=== PATIENT | female | born 1980 | race Caucasian/White ===

== ENCOUNTER 2018-05-20 17:03 | Observation (INO) ==
[2018-05-20] MEDS ORDERED: 0.9 % Sodium Chloride 1,000 ML IVC ONE ×2 (18:03→18:07)
[2018-05-20] MEDS ORDERED: Ondansetron 4 MG/2 ML VIAL IVP ONE (18:03)
[2018-05-20 19:04] LABS: Bilirubin,Urine Negative (Negative); Blood,Urine Negative (Negative); Clarity,Urine Cloudy (Clear); Color,Urine Yellow (Yellow); Glucose,Urine (UA) Normal (Normal); Ketones,Urine Negative (Negative); Leukocyte Esterase,Urine Negative (Negative); Nitrite,Urine Negative (Negative); Protein,Urine Negative (Neg-Trace); Specific Gravity,Urine 1.022 (1.010-1.025); Urobilinogen,Urine Normal (Normal)
[2018-05-20 19:05] LABS: Bacteria,Urine Few per hpf (None-Few); Hyaline Casts,Urine None Seen per lpf (None-Few); RBC,Urine 0-3 per hpf (0-3); Squamous Epithelial Cell,Urine Many per lpf (None-Few); WBC,Urine 0-3 per hpf (0-3)
--- NOTE | 2018-05-20 19:12 | Emergency Department Note ---
Disposition Clinical Impression: Acute cholecystitis Disposition: Admitted As Inpatient Condition: Good Nausea/Vomiting/Diarrhea HPI - General Chief complaint: ED Nausea/Vomiting/Diarrhea Stated complaint: CP Time Seen by Provider: 05/20/18 17:06 Source: patient Mode of arrival: private vehicle Limitations: no limitations Nursing Notes Reviewed: Yes Vital Signs Reviewed: Yes - History of Present Illness HPI Narrative: 37-year-old female presents to the ER with a complaint of nausea vomiting diarrhea and abdominal pain for 3 days. Symptoms began with right-sided abdominal pain with nonbloody nonbilious vomiting as well as nonbloody diarrhea. Denies any past surgical history with the exception of a tubal ligation. Reports she was unable to keep anything down today. She started having a cough for a few days and some chest pain is worse whenever she coughs. No history of cardiovascular disease. Reports as unable to urinate today. No other complaints. Pt Subjective Complaint: nausea, vomiting, diarrhea, abdominal pain Onset (ago): day(s) Description of emesis: watery Description of Diarrhea: water If pain, Location of pain: other (Right-sided) Consistency: intermittent Improves with: nothing Worsens with: nonthing Associated symptoms: Reports: chest pain, cough, nausea/vomiting. Denies: fever /chills, dysuria - Related Data Allergies Allergy/AdvReac Type Severity Reaction Status Date / Time Sulfa (Sulfonamide Allergy Hives Verified 05/20/18 17:19 Antibiotics) All systems ED: reviewed and negative except as stated. Constitutional: Denies: fever, chills Cardiovascular: Reports: chest pain Respiratory: Reports: cough. Denies: dyspnea Gastrointestinal: Reports: abdominal pain, nausea, vomiting, diarrhea Genitourinary: Denies: dysuria, hematuria Past Medical History - Past Medical History Attestation: Yes The following information was validated with the patient. Source: patient Medical history: Reports: non-contributory Physical Exam - General Limitations: no limitations General appearance: alert, in no apparent distress - Head Head exam: atraumatic, normocephalic - Eye Eye exam: Present: normal appearance - ENT ENT exam: normal exam - Neck Neck exam: Present: normal inspection, tenderness (Along the sternum) - Chest Chest inspection: Present: normal inspection, symmetric chest wall rise - Respiratory Respiratory exam: Present: normal lung sounds bilaterally - Cardiovascular Cardiovascular exam: Present: normal rhythm, tachycardia, normal heart sounds - Abdominal Exam Abdominal exam: Present: soft, tenderness (Moderate right sided abdominal pain just off the umbilicus.). Absent: distention, guarding, rigidity - Extremities Exam Extremities exam: Present: normal inspection, full ROM - Expanded Upper Extremity Exam Shoulder exam: Present: normal inspection, full ROM Arm exam: Present: normal inspection, full ROM Elbow exam: Present: normal inspection, full ROM Forearm/Wrist exam: Present: normal inspection, full ROM Hand exam: Present: normal inspection, full ROM - Expanded Lower Extremity Exam Hip/Pelvis exam: Present: normal inspection, full ROM Upper leg exam: Present: normal inspection, full ROM Knee exam: Present: normal inspection, full ROM Lower leg exam: Present: normal inspection, full ROM Ankle exam: Present: normal inspection, full ROM Foot/toe exam: Present: normal inspection, full ROM - Skin Skin exam: Present: warm, dry Course Course Narrative: Patient seen and examined. Vital signs reviewed. Plan for CT imaging, labs, urinalysis. EKG for chest pain which is reproducible here. - Reevaluation(s) Reevaluation #1: Discussed results of imaging and labs with the patient. Discussed that she would be admitted. - Consultations Consultation #1: I discussed his case with the on-call surgeon. CT imaging concerning for acute cholecystitis. She has a leukocytosis with a left shift. Asked if he would like an ultrasound. States she can be admitted to his service. Vital Signs Temperature 97.7 F 05/20/18 17:05 Pulse Rate 106 05/20/18 17:05 Respiratory Rate 18 05/20/18 17:05 Blood Pressure 120/87 05/20/18 17:05 O2 Sat by Pulse Oximetry 98 05/20/18 17:05 Temperature 97.7 F 05/20/18 17:05 Pulse Rate 71 05/20/18 19:40 Respiratory Rate 16 05/20/18 21:07 Blood Pressure 108/76 05/20/18 21:07 O2 Sat by Pulse Oximetry 94 05/20/18 19:40 Oxygen Delivery Oxygen Delivery Room Air Nausea/Vomiting/Diarrhea - MDM Narrative Medical decision making narrative: 37-year-old female no medical history presents with 3 days of right-sided abdominal pain with nausea and vomiting. Nonsurgical abdominal exam. CT imaging demonstrates gallbladder wall thickening and cholelithiasis with concerns for acute cholecystitis. She has a leukocytosis with shift. She has a common bile duct dilation. LFTs and bilirubin are normal. Case discussed with the on-call surgeon. Patient given fentanyl for pain, IV fluids, Zofran as well as Zosyn. Admitted in stable condition. - Lab Data Lab results reviewed: Yes I reviewed the patient's lab results. Result diagrams: 05/20/18 19:06 05/20/18 19:06 Lab Results 05/20/18 05/20/18 05/20/18 Range/Units 18:48 18:48 19:06 WBC 14.6 H (4.3-11.1) K/mcL RBC 3.93 (3.82-4.97) M/mcL Hgb 12.8 (11.5-15.4) g/dL Hct 37.9 (35.3-44.9) % MCV 96.4 (83.0-100.0) fL MCH 32.6 (28.0-33.3) pg MCHC 33.8 (31.6-35.5) g/dL RDW 12.7 (11.5-14.5) % Plt Count 325 (140-400) K/mcL MPV 9.7 (9.4-12.4) fL Immature Gran % 0.3 (0-4) % Seg Neutrophils % 75.0 % Lymphocytes % 17.9 % Monocytes % 5.1 % Eosinophils % 1.2 % Basophils % 0.5 % Neutrophils # 10.9 H (1.6-8.9) K/mcL Lymphocytes # 2.6 (0.6-4.6) K/mcL Monocytes # 0.8 (0.0-1.3) K/mcL Eosinophils # 0.2 (0.0-0.6) K/mcL Basophils # 0.1 (0.0-0.2) K/mcL Sodium (136-145) mEq/L Potassium (3.5-5.1) mEq/L Chloride (98-107) mEq/L Carbon Dioxide (23-29) mEq/L BUN (6-20) mg/dL Creatinine (0.60-1.20) mg/dL Est GFR ( Amer) (> 60) Est GFR (Non-Af Amer) (> 60) BUN/Creatinine Ratio (6-26) Glucose (70-105) mg/dL Calculated Osmolality (280-300) Calcium (8.6-10.3) mg/dL Total Bilirubin (0.3-1.0) mg/dL AST (13-39) Units/L ALT (7-52) Units/L Alkaline Phosphatase (34-104) Units/L Serum Total Protein (6.4-8.9) g/dL Albumin (3.5-5.7) g/dL Globulin (2.4-3.5) g/dL Albumin/Globulin Ratio (1.1-2.2) Lipase (11-82) Units/L Serum , Qual (Negative) Urine Color Yellow (Yellow) Urine Clarity Cloudy A (Clear) Urine pH 7.0 (5.0-8.0) pH Units Ur Specific [place] 1.022 (1.010-1.025) Urine Protein Negative (Neg-Trace) mg/dL Urine Glucose (UA) Normal (Normal) mg/dL Urine Ketones Negative (Negative) mg/dL Urine Blood Negative (Negative) Urine Nitrite Negative (Negative) Urine Bilirubin Negative (Negative) Urine Urobilinogen Normal (Normal) mg/dL Ur Leukocyte Esterase Negative (Negative) Urine Microscopic RBC 0-3 (0-3) per hpf Urine Microscopic WBC 0-3 (0-3) per hpf Ur Squamous Epith Cells Many H (None-Few) per lpf Urine Bacteria Few (None-Few) per hpf Hyaline Casts None Seen (None-Few) per lpf Ur Culture Indicated? NO (NO) Urine Test Negative (Negative) 05/20/18 05/20/18 Range/Units 19:06 19:06 WBC (4.3-11.1) K/mcL RBC (3.82-4.97) M/mcL Hgb (11.5-15.4) g/dL Hct (35.3-44.9) % MCV (83.0-100.0) fL MCH (28.0-33.3) pg MCHC (31.6-35.5) g/dL RDW (11.5-14.5) % Plt Count (140-400) K/mcL MPV (9.4-12.4) fL Immature Gran % (0-4) % Seg Neutrophils % % Lymphocytes % % Monocytes % % Eosinophils % % Basophils % % Neutrophils # (1.6-8.9) K/mcL Lymphocytes # (0.6-4.6) K/mcL Monocytes # (0.0-1.3) K/mcL Eosinophils # (0.0-0.6) K/mcL Basophils # (0.0-0.2) K/mcL Sodium 140 (136-145) mEq/L Potassium 3.7 (3.5-5.1) mEq/L Chloride 110 H (98-107) mEq/L Carbon Dioxide 21 L (23-29) mEq/L BUN 13 (6-20) mg/dL Creatinine 0.69 (0.60-1.20) mg/dL Est GFR ( Amer) > 60 (> 60) Est GFR (Non-Af Amer) > 60 (> 60) BUN/Creatinine Ratio 19 (6-26) Glucose 147 H (70-105) mg/dL Calculated Osmolality 293 (280-300) Calcium 8.7 (8.6-10.3) mg/dL Total Bilirubin 0.5 (0.3-1.0) mg/dL AST 13 (13-39) Units/L ALT 18 (7-52) Units/L Alkaline Phosphatase 79 (34-104) Units/L Serum Total Protein 6.5 (6.4-8.9) g/dL Albumin 3.7 (3.5-5.7) g/dL Globulin 2.8 (2.4-3.5) g/dL Albumin/Globulin Ratio 1.3 (1.1-2.2) Lipase 16 (11-82) Units/L Serum , Qual Negative (Negative) Urine Color (Yellow) Urine Clarity (Clear) Urine pH (5.0-8.0) pH Units Ur Specific [place] (1.010-1.025) Urine Protein (Neg-Trace) mg/dL Urine Glucose (UA) (Normal) mg/dL Urine Ketones (Negative) mg/dL Urine Blood (Negative) Urine Nitrite (Negative) Urine Bilirubin (Negative) Urine Urobilinogen (Normal) mg/dL Ur Leukocyte Esterase (Negative) Urine Microscopic RBC (0-3) per hpf Urine Microscopic WBC (0-3) per hpf Ur Squamous Epith Cells (None-Few) per lpf Urine Bacteria (None-Few) per hpf Hyaline Casts (None-Few) per lpf Ur Culture Indicated? (NO) Urine Test (Negative) - Radiology Data Radiology results reviewed: Yes I reviewed the patient's radiology results. Chest X-Ray 05/20/18 17:10 IMPRESSION: Negative chest. D/ / Erin Person MD / Erin Person MD Interpreting Provider: Erin Person MD Abdomen/Pelvis CT 05/20/18 18:06 IMPRESSION: 1. Irregular gallbladder wall thickening with probable non calcified stones. Mild dilatation of the common bile duct at 11 mm. The findings are concerning for cholecystitis. Ultrasound follow-up recommended. 2. No other acute findings within the abdomen or pelvis. No evidence of obstructive uropathy or appendicitis. D/ / Jeevan Haley MD / Jeevan Haley MD Interpreting Provider: Jeevan Haley MD Lizzy - Lizzy Situation: Demographics, MOA Background: Presenting Complaint, Relevant PMH, Meds, & Allergies Assessment: Course and respsone to treatment, Exam Concerns, Patient/Family Expectation, Pertinant Lab Results Recommendation: Barrier(s) to disposition, Recommendation based on pending studies, treatments, or consults Lizzy Report Given to: Dr. Isidro Ball [facility] Time: 21:20 Attestation Statement - Attestation Attestation: I examined this patient and my medical decision-making was reviewed with the Resident Physician, Dr. Cueto. I agree with the documented findings, disposition and treatment plan as described except to the extent set forth below. Patient is a 37-year-old white female with a 3 day history of nausea vomiting diarrhea and nonbloody with right-sided abdominal pain. Patient states she is having difficulty tolerating by mouth and gradually worsening severity of pain is generalized to the right side. Patient denies any fevers or chills, no history of falls or trauma, no prior surgical intervention. I agree with patient's physical exam findings as documented, vital signs are stable. Patient was made nothing by mouth received IV pain and nausea medications had full laboratory evaluation including urinalysis and bedside ultrasound of the gallbladder by Dr. Cueto and CT imaging of the abdomen and pelvis. Patient with leukocytosis and CT shows acute cholecystitis. Case was discussed with Dr. Yanes who accepted the patient to his service for IV antibiotics were initiated patient's remained hemodynamically stable and is resting complaint this time.
[2018-05-20 19:37] LABS: Basophils # 0.1 K/mcL (0.0-0.2); Basophils % 0.5 %; Eosinophils # 0.2 K/mcL (0.0-0.6); Eosinophils % 1.2 %; Hematocrit 37.9 % (35.3-44.9); Hemoglobin 12.8 g/dL (11.5-15.4); Immature Granulocytes % 0.3 % (0-4); Lymphocytes # 2.6 K/mcL (0.6-4.6); Lymphocytes % 17.9 %; Mean Corpuscular HGB Conc 33.8 g/dL (31.6-35.5); Mean Corpuscular Hemoglobin 32.6 pg (28.0-33.3); Mean Corpuscular Volume 96.4 fL (83.0-100.0); Mean Platelet Volume 9.7 fL (9.4-12.4); Monocytes # 0.8 K/mcL (0.0-1.3); Monocytes % 5.1 %; Neutrophils # 10.9 K/mcL (1.6-8.9); Platelet Count 325 K/mcL (140-400); Red Blood Count 3.93 M/mcL (3.82-4.97); Red Cell Distribution Width 12.7 % (11.5-14.5)
[2018-05-20 19:41] LABS: Alanine Aminotransferase 18 Units/L (7-52); Albumin 3.7 g/dL (3.5-5.7); Albumin/Globulin Ratio 1.3 (1.1-2.2); Alkaline Phosphatase 79 Units/L (34-104); Aspartate Amino Transferase 13 Units/L (13-39); BUN/Creatinine Ratio 19 (6-26); Bilirubin,Total 0.5 mg/dL (0.3-1.0); Blood Urea Nitrogen 13 mg/dL (6-20); Calcium 8.7 mg/dL (8.6-10.3); Carbon Dioxide 21 mEq/L (23-29); Chloride 110 mEq/L (98-107); Globulin 2.8 g/dL (2.4-3.5); Glucose 147 mg/dL (70-105); Lipase 16 Units/L (11-82); Osmolality,Calculated 293 (280-300); Potassium 3.7 mEq/L (3.5-5.1); Sodium 140 mEq/L (136-145); Total Protein 6.5 g/dL (6.4-8.9); eGFR For Non-African Americans > 60 (> 60)
[2018-05-20] MEDS ORDERED: Piperacillin/Tazobactam 3.375 GM in 0.9 % Sodium Chloride Mini Bag 100 ML IVPB ONE (20:43)
[2018-05-20] MEDS ORDERED: *HR* FentaNYL (PF) 100 MCG/2 ML VIAL IVP ONE (20:50)
[2018-05-20] MEDS: 0.9 % Sodium Chloride 1,000 ML IVC SCH (22:54)
[2018-05-20] MEDS: *HR* OxyCODONE/APAP 10/325 TABLET PO PRN (22:54)
[2018-05-20] MEDS ORDERED: Ondansetron 4 MG/2 ML VIAL IVP PRN (23:47)
[2018-05-21] MEDS ORDERED: Ondansetron 4 MG/2 ML VIAL IVP SCH
[2018-05-21] MEDS: cefOXitin 2,000 MG in Water for inj. (sterile) 20 ML 20 ML IVP SCH ×2 (01:01→08:20)
[2018-05-21 01:46] LABS: Basophils # 0.1 K/mcL (0.0-0.2); Basophils % 0.7 %; Eosinophils # 0.2 K/mcL (0.0-0.6); Eosinophils % 1.6 %; Hematocrit 36.5 % (35.3-44.9); Hemoglobin 12.2 g/dL (11.5-15.4); Immature Granulocytes % 0.4 % (0-4); Lymphocytes # 2.7 K/mcL (0.6-4.6); Lymphocytes % 19.6 %; Mean Corpuscular HGB Conc 33.4 g/dL (31.6-35.5); Mean Corpuscular Hemoglobin 32.8 pg (28.0-33.3); Mean Corpuscular Volume 98.1 fL (83.0-100.0); Mean Platelet Volume 10.2 fL (9.4-12.4); Monocytes # 0.9 K/mcL (0.0-1.3); Monocytes % 6.5 %; Neutrophils # 9.8 K/mcL (1.6-8.9); Platelet Count 327 K/mcL (140-400); Red Blood Count 3.72 M/mcL (3.82-4.97); Red Cell Distribution Width 12.5 % (11.5-14.5); Segmented Neutrophils % 71.2 %
[2018-05-21 02:05] LABS: Alanine Aminotransferase 19 Units/L (7-52); Albumin 3.6 g/dL (3.5-5.7); Albumin/Globulin Ratio 1.6 (1.1-2.2); Alkaline Phosphatase 76 Units/L (34-104); Aspartate Amino Transferase 16 Units/L (13-39); BUN/Creatinine Ratio 16 (6-26); Bilirubin,Direct 0.1 mg/dL (0.0-0.2); Bilirubin,Indirect 0.5 mg/dL (0.0-1.2); Bilirubin,Total 0.6 mg/dL (0.3-1.0); Blood Urea Nitrogen 11 mg/dL (6-20); Calcium 8.7 mg/dL (8.6-10.3); Carbon Dioxide 19 mEq/L (23-29); Chloride 112 mEq/L (98-107); Globulin 2.3 g/dL (2.4-3.5); Glucose 157 mg/dL (70-105); Osmolality,Calculated 293 (280-300); Potassium 3.7 mEq/L (3.5-5.1); Sodium 140 mEq/L (136-145); Total Protein 5.9 g/dL (6.4-8.9); eGFR For Non-African Americans > 60 (> 60)
[2018-05-21] MEDS: *HR* OxyCODONE/APAP 10/325 TABLET PO PRN ×3 (05:30→17:36)
[2018-05-21] MEDS: 0.9 % Sodium Chloride 1,000 ML IVC SCH ×3 (08:21→22:22)
[2018-05-21] MEDS ORDERED: Nicotine 21 MG PATCH.TD24 TD SCH (09:30)
--- NOTE | 2018-05-21 09:36 | General Surg History&Physical ---
<Liane Zambrano - Last Filed: 05/21/18 09:22> Date of Encounter: 05/21/18 Time of Encounter: 09:22 Assessment and Plan (1) Acute cholecystitis Current Visit: Yes Status: Acute WBC 14.6 with radiological signs and consistent history - serial abdominal exams - supportive care and pain management - NPO - continue IVF - IV mefoxin Plan for lap natalia with in [address] Felix. The assessment and plan as outlined above was discussed with the patient and/or family members who expressed understanding and agreement. All questions were answered. (2) Common bile duct dilatation Current Visit: Yes Status: Acute see above (3) Sepsis Current Visit: Yes Status: Acute Initial presentation met SIRs criteria of tachycardia and leukocytosis - currently non toxic appearing and improved with IVF hydration - see above for plan (4) Tobacco abuse Current Visit: Yes Status: Acute counseled against use - nicotine patch History of Present Illness Chief complaint: abdominal pain HPI: Ms. Noriega is a 37 year old female hx osteoarthritis presented to ED with 4 day hsitory of abdominal pain. She has repeated vomiting and pain worse with food. Describes several episodes of diarrhea with out change in color. She has fever and chills but denies confusion. Her last meal was 3 days ago but she has been able to tolerate water. Her pain and nausea has resolved with mediations. In ED, vitals afebrile HR 106 with 120/87 and RR 18 98% RA. WBC 14.6 with normal liver enzymes and electrolytes. UA negative. CT showed gallbladder wall thickening with 12mm stone and common bile duct dilation . She was started on zosyn changed to cefoxition by Dr Felix. Her chronic cough is at baseline. PMHX osteoarthritis of the left knee worsened by recent fall at her job - takes vicodine 7.5 tid . Smoker with 40 pk yr denies etoh and illicit drug use . She can not remember her other medications. Family history of gallbladder disease in sister no family cardiac history. Allergic to sulfa drugs causes angioedema. Past Med Surg Social Fam HX - Past Medical History Medical history: asthma, migraine, other Additional medical history: knee pain, restless legs Psychiatric history: no psych history - Past Surgical History Surgical History: no surgical history - Social History Smoking Status: Current every day smoker Packs per day: 1.5 Smokeless Tobacco Status: No Alcohol use: none Drug use: opiates - Family History Mother Living Status: Still Living Hx Family Endocrine Disorder: Yes Father Name: 58 Family Member Ethnicity: Non- Living Status: Still Living Hx Family Cardiac Disorders: Yes Hx Family Cancer: Yes (prostate cancer) Hx Family Endocrine Disorder: Yes Sister Age: 37 Living Status: Still Living Hx Family Cancer: Yes (breast) Hx Family Endocrine Disorder: Yes Medications and Allergies Albuterol Sulfate [Albuterol Inhaler] 2 puff PO Q4H PRN 05/20/18 [History] Gabapentin [Neurontin] 400 mg PO QID PRN 05/20/18 [History] HYDROcodone/Acet 7.5/325 mg [[place] 7.5-325 mg] 1 tab PO TID 05/20/18 [History] Medroxyprogesterone Acetate [DEPO-Provera] 150 mg IM AD 05/20/18 [History] Multivitamin [Multivitamins] 1 each PO DAILY 05/20/18 [History] SUMAtriptan Succinate [Imitrex] 100 mg PO AD 05/20/18 [History] 3 Allergy/AdvReac Type Severity Reaction Status Date / Time Sulfa (Sulfonamide Allergy Hives Verified 05/20/18 17:19 Antibiotics) Review of Systems All systems PM: The remainder of the systems were reviewed and are negative - Constitutional no chills, no fever(s) - EENT Nose, mouth and throat: no dizziness, no headache(s) - Cardiovascular no chest pain, no irregular heart rhythm, no palpitations - Respiratory cough, no dyspnea, no wheezing - Gastrointestinal abdominal pain, diarrhea, nausea, vomiting, no constipation - Genitourinary Genitourinary: urinary frequency, no dysuria, no hematuria - Musculoskeletal atrophy, joint swelling, no muscle weakness - Neurological no dizziness, no loss of vision General Surgery Exam Initial Vital Signs Temp Pulse Resp BP Pulse Ox 97.7 F 106 18 120/87 98 05/20/18 17:05 05/20/18 17:05 05/20/18 17:05 05/20/18 17:05 05/20/18 17:05 - General physical appearance well developed, well nourished, moderate distress, obese - Eyes normal ocular movement - ENT normal pinna, normal nares, no hearing loss, dry mucosa - Respiratory normal expansion, normal respiratory effort wheezing: bilateral (mild) - Cardiovascular Cardiovascular exam: Present: RRR, no murmurs/rubs/gallops - Abdomen Abdomen general surgery: Present: bowel sounds present, soft, non tender. Absent: guarding, rebound Hernia: Present: none - Integumentary Integumentary general surgery: Present: warm and dry, no abnormal pigmentation. Absent: diaphoresis - Neurologic Present: CN 2-12 grossly intact, normal coordination, normal sensation - Musculoskeletal Present: normal gait, normal posture - Psychiatric Psychiatric general surgery: Present: A&Ox3, speech is normal, memory intact Results - Labs 05/21/18 00:40 05/21/18 00:40 Abnormal lab results WBC 13.8 K/mcL (4.3-11.1) H 05/21/18 00:40 RBC 3.72 M/mcL (3.82-4.97) L 05/21/18 00:40 Neutrophils # 9.8 K/mcL (1.6-8.9) H 05/21/18 00:40 Chloride 112 mEq/L (98-107) H 05/21/18 00:40 Carbon Dioxide 19 mEq/L (23-29) L 05/21/18 00:40 Glucose 157 mg/dL (70-105) H 05/21/18 00:40 Serum Total Protein 5.9 g/dL (6.4-8.9) L 05/21/18 00:40 Globulin 2.3 g/dL (2.4-3.5) L 05/21/18 00:40 Urine Clarity Cloudy (Clear) A 05/20/18 18:48 Ur Squamous Epith Cells Many per lpf (None-Few) H 05/20/18 18:48 Diabetes panel 05/21/18 Range/Units 00:40 Sodium 140 (136-145) mEq/L Potassium 3.7 (3.5-5.1) mEq/L Chloride 112 H (98-107) mEq/L Carbon Dioxide 19 L (23-29) mEq/L BUN 11 (6-20) mg/dL Creatinine 0.67 (0.60-1.20) mg/dL Glucose 157 H (70-105) mg/dL Calcium 8.7 (8.6-10.3) mg/dL AST 16 (13-39) Units/L ALT 19 (7-52) Units/L Alkaline Phosphatase 76 (34-104) Units/L Albumin 3.6 (3.5-5.7) g/dL Calcium panel 05/21/18 Range/Units 00:40 Calcium 8.7 (8.6-10.3) mg/dL Albumin 3.6 (3.5-5.7) g/dL Pituitary panel 05/21/18 Range/Units 00:40 Sodium 140 (136-145) mEq/L Potassium 3.7 (3.5-5.1) mEq/L Chloride 112 H (98-107) mEq/L Carbon Dioxide 19 L (23-29) mEq/L BUN 11 (6-20) mg/dL Creatinine 0.67 (0.60-1.20) mg/dL Glucose 157 H (70-105) mg/dL Calcium 8.7 (8.6-10.3) mg/dL Adrenal panel 05/21/18 Range/Units 00:40 Sodium 140 (136-145) mEq/L Potassium 3.7 (3.5-5.1) mEq/L Chloride 112 H (98-107) mEq/L Carbon Dioxide 19 L (23-29) mEq/L BUN 11 (6-20) mg/dL Creatinine 0.67 (0.60-1.20) mg/dL Glucose 157 H (70-105) mg/dL Calcium 8.7 (8.6-10.3) mg/dL Total Bilirubin 0.6 (0.3-1.0) mg/dL AST 16 (13-39) Units/L ALT 19 (7-52) Units/L Alkaline Phosphatase 76 (34-104) Units/L Albumin 3.6 (3.5-5.7) g/dL All other labs normal. <Dieudonne Felix - Last Filed: 05/21/18 10:37> Date of Encounter: 05/21/18 History of Present Illness HPI: Ms. Noriega is a 37 year old female Review of Systems All systems PM: The remainder of the systems were reviewed and are negative General Surgery Exam Initial Vital Signs Temp Pulse Resp BP Pulse Ox 97.7 F 106 18 120/87 98 05/20/18 17:05 05/20/18 17:05 05/20/18 17:05 05/20/18 17:05 05/20/18 17:05 Results - Labs 05/21/18 00:40 05/21/18 00:40 Abnormal lab results WBC 13.8 K/mcL (4.3-11.1) H 05/21/18 00:40 RBC 3.72 M/mcL (3.82-4.97) L 05/21/18 00:40 Neutrophils # 9.8 K/mcL (1.6-8.9) H 05/21/18 00:40 Chloride 112 mEq/L (98-107) H 05/21/18 00:40 Carbon Dioxide 19 mEq/L (23-29) L 05/21/18 00:40 Glucose 157 mg/dL (70-105) H 05/21/18 00:40 Serum Total Protein 5.9 g/dL (6.4-8.9) L 05/21/18 00:40 Globulin 2.3 g/dL (2.4-3.5) L 05/21/18 00:40 Urine Clarity Cloudy (Clear) A 05/20/18 18:48 Ur Squamous Epith Cells Many per lpf (None-Few) H 05/20/18 18:48 Diabetes panel 05/21/18 Range/Units 00:40 Sodium 140 (136-145) mEq/L Potassium 3.7 (3.5-5.1) mEq/L Chloride 112 H (98-107) mEq/L Carbon Dioxide 19 L (23-29) mEq/L BUN 11 (6-20) mg/dL Creatinine 0.67 (0.60-1.20) mg/dL Glucose 157 H (70-105) mg/dL Calcium 8.7 (8.6-10.3) mg/dL AST 16 (13-39) Units/L ALT 19 (7-52) Units/L Alkaline Phosphatase 76 (34-104) Units/L Albumin 3.6 (3.5-5.7) g/dL Calcium panel 05/21/18 Range/Units 00:40 Calcium 8.7 (8.6-10.3) mg/dL Albumin 3.6 (3.5-5.7) g/dL Pituitary panel 05/21/18 Range/Units 00:40 Sodium 140 (136-145) mEq/L Potassium 3.7 (3.5-5.1) mEq/L Chloride 112 H (98-107) mEq/L Carbon Dioxide 19 L (23-29) mEq/L BUN 11 (6-20) mg/dL Creatinine 0.67 (0.60-1.20) mg/dL Glucose 157 H (70-105) mg/dL Calcium 8.7 (8.6-10.3) mg/dL Adrenal panel 05/21/18 Range/Units 00:40 Sodium 140 (136-145) mEq/L Potassium 3.7 (3.5-5.1) mEq/L Chloride 112 H (98-107) mEq/L Carbon Dioxide 19 L (23-29) mEq/L BUN 11 (6-20) mg/dL Creatinine 0.67 (0.60-1.20) mg/dL Glucose 157 H (70-105) mg/dL Calcium 8.7 (8.6-10.3) mg/dL Total Bilirubin 0.6 (0.3-1.0) mg/dL AST 16 (13-39) Units/L ALT 19 (7-52) Units/L Alkaline Phosphatase 76 (34-104) Units/L Albumin 3.6 (3.5-5.7) g/dL All other labs normal. - Attending Attestation I examined this patient and my medical decision-making was reviewed with the Resident Physician. I agree with the documented findings, disposition and treatment plan as described except to the extent set forth below. The patient is seen and evaluated with the resident. The patient has persistent severe right upper quadrant pain. CAT scan findings are consistent with acute cholecystitis and cholelithiasis. She is been treated adequately with IV antibiotics and hydration. We will plan on laparoscopic cholecystectomy , cholangiogram later this afternoon. We will also plan to keep her for 2 doses of postoperative IV antibiotics and likely discharge in the morning. I discussed the risks and benefits with the patient she understands this and wished to proceed Dieudonne Felix MD FACS
[2018-05-21] MEDS ORDERED: *HR* Midazolam HCl 2 MG/2 ML VIAL ONE (12:28)
[2018-05-21] MEDS ORDERED: *HR* FentaNYL (PF) 100 MCG/2 ML VIAL ONE (12:28)
[2018-05-21] MEDS ORDERED: *HR* Propofol 200 MG/20 ML VIAL IVP ONE (12:29)
[2018-05-21] MEDS ORDERED: Lidocaine -MPF 2% 2 ML VIAL ONE (12:32)
[2018-05-21] MEDS ORDERED: Dexamethasone 4 MG/ML VIAL ONE (12:32)
[2018-05-21] MEDS ORDERED: *HR* Rocuronium Bromide 50 MG/5 ML VIAL ONE (12:32)
[2018-05-21] MEDS ORDERED: *HR* Succinylcholine 200 MG/10 ML VIAL IVP ONE (12:32)
[2018-05-21] MEDS ORDERED: Ondansetron 4 MG/2 ML VIAL ONE (12:32)
[2018-05-21] MEDS ORDERED: CefOXitin 1,000 MG VIAL ONE (12:41)
[2018-05-21] MEDS ORDERED: Albuterol 2.5 MG/3 ML NEBULIZER IH ONE (13:40)
--- NOTE | 2018-05-21 13:43 | Anesthesia Evaluation PreOp ---
Date of Encounter: 05/21/18 Time of Encounter: 13:40 - Past History Planned Operation: Lap Cholecystectomy Cardiac History: Denies any Significant Hx Pulmonary History: Smoker, Asthma [employer] DIRECTOR History: Denies Any Significant HX Other Medical History: Other (Obese) Anesthesia History: No Prior Anesthetic Complications : No Test: Negative Alcohol Use: none Drug use: opiates Medications and Allergies Albuterol Sulfate [Albuterol Inhaler] 2 puff PO Q4H PRN 05/20/18 [History] Gabapentin [Neurontin] 400 mg PO QID PRN 05/20/18 [History] HYDROcodone/Acet 7.5/325 mg [[place] 7.5-325 mg] 1 tab PO TID 05/20/18 [History] Medroxyprogesterone Acetate [DEPO-Provera] 150 mg IM AD 05/20/18 [History] Multivitamin [Multivitamins] 1 each PO DAILY 05/20/18 [History] SUMAtriptan Succinate [Imitrex] 100 mg PO AD 05/20/18 [History] 3 Allergy/AdvReac Type Severity Reaction Status Date / Time Sulfa (Sulfonamide Allergy Hives Verified 05/20/18 17:19 Antibiotics) - Meds/Allergy Pre-op Review Medications Reviewed: Yes Allergies Reviewed: Yes Beta Blockers on Current Med List: No Anesthesia Results - Labs 05/21/18 00:40 05/21/18 00:40 Anesthesia Exam O2 Sat Height 1.65 m Height 1.65 m Weight 99.4 kg Weight 99.4 kg Weight 98.883 kg O2 Sat by Pulse Oximetry 97 O2 Sat by Pulse Oximetry 97 O2 Sat by Pulse Oximetry 97 O2 Sat by Pulse Oximetry 98 O2 Sat by Pulse Oximetry 99 O2 Sat by Pulse Oximetry 96 O2 Sat by Pulse Oximetry 94 O2 Sat by Pulse Oximetry 100 O2 Sat by Pulse Oximetry 99 O2 Sat by Pulse Oximetry 98 Vital Signs Temp Pulse Resp BP Pulse Ox 97.7 F 106 18 120/87 98 05/20/18 17:05 05/20/18 17:05 05/20/18 17:05 05/20/18 17:05 05/20/18 17:05 Height: 5'5 Weight: 219 lbs NPO (# of Hours): MN Pain Scale: 0 - HEENT Pupil (Motor): Pupils equal, EOMI Mallampati: III Teeth: Normal Oral Opening: Less than or equal to 3 - [employer] DIRECTOR LOC: Oriented [employer] DIRECTOR Motor: Normal RUE, Normal LUE, Normal RLE, Normal LLE, Normal Face [employer] DIRECTOR Sensory: Normal: RUE, LUE, RLE, LLE, Face - Cardiac Rhythm: Regular Murmur: None JVD: No Carotid Bruit: No - Pulmonary Breath Sounds: bilateral Clear Respiratory Effort: Symmetrical Anesthesia Assess/Plan ASA Score: 2 Modified [place] Scale for Level of Consciousness: Cooperative, oriented, and tranquil Anesthetic Plan: General Monitoring Plan: Standard Monitors Recovery Plan: PACU (Discussed GA, agrees to proceed)
[2018-05-21] MEDS ORDERED: Albuterol 2.5 MG/3 ML NEBULIZER ONE (13:49)
[2018-05-21] MEDS ORDERED: Neostigmine Methylsulfate 3 MG/3 ML SYRINGE ONE (14:08)
[2018-05-21] MEDS ORDERED: Metoclopramide 10 MG/2 ML VIAL ONE (14:09)
[2018-05-21] MEDS ORDERED: Acetaminophen IV 1,000 MG/100 ML INFUS..BTL ONE (14:10)
[2018-05-21] MEDS ORDERED: Isovue-300 50 ML VIAL IVP ONE (14:33)
[2018-05-21] MEDS ORDERED: *HR* Promethazine 25 MG/ML VIAL IVP PRN (14:58)
[2018-05-21] MEDS ORDERED: *HR* OxyCODONE Immed Rel 5 MG TABLET PO PRN (14:58)
--- NOTE | 2018-05-21 16:01 | Operative Note ---
Date of procedure: 05/21/18 Pre-op diagnosis: Acute cholecystitis Post-op diagnosis: other (Severe acute and chronic cholecystitis, dilated common bile duct with distal stricture) Procedure: Laparoscopic cholecystectomy, cholangiogram (+30% for acute and chronic inflammation) Anesthesia: MARY Surgeon: Dieudonne Felix Was there an blacksmith assistant present: No Estimated blood loss (cc): 50 Specimen: Gallbladder and contents Condition: stable Disposition: PACU Procedure in Detail: Laparoscopic cholecystectomy and intraoperative cholangiogram (+30% for acute and chronic infection) Operative procedure after informed consent and appropriate patient identification timeout the patient's take major operating suite and placed supine position given adequate general endotracheal anesthesia the abdomen is prepped and draped in sterile fashion utilizing ChloraPrep standard draping techniques timeout was taken patient is identified. I made a vertical midline incision below the umbilicus dissected down to level of fascia there are 2 traction stitches placed in the abdominal cavity was entered visually. A Rouse trocar was placed in the abdomen and the abdomen was insufflated to 15 mmHg pressure CO2 the gallbladder was visualized. A placement 11 port in the subxiphoid area and 2 5 mm ports in the subcostal area. The gallbladder was completely encased in acute and chronic inflammatory adhesions. The gallbladder was rock hard. Initial attempts to grasp the gallbladder resulted in breakage of 2 Pearl clamps. 20 minutes was necessary to visualize the gallbladder and divide the surrounding adhesions. The gallbladder was grasped and elevated. The gallbladder was rock hard and made dissection very difficult. A variety of blunt and sharp dissection techniques were used to isolate the cystic duct and cystic artery. The cystic artery was controlled with 2 surgical clips proximally and one distally and it was divided I placed a surgical clip on the neck the gallbladder and obtained an intraoperative cholangiogram using 25 mL of Isovue. Intraoperative cholangiogram demonstrated dilated common bile duct and intrahepatic radicals. There was a distal common bile duct stricture. He was unclear whether this was a stone or stricture. Even with magnified views the radiologist was unable to differentiate between these 2 processes. Certainly further evaluation will be required. The cholangiocatheter was removed and the cystic duct was controlled with 2 surgical clips proximally and was divided the gallbladder was removed from the gallbladder fossae using electrocautery. The dissection was tremendously difficult secondary to rock hard gallbladder and severe chronic inflammatory changes. The gallbladder was removed through the umbilical port site using a specimen bag.. I replaced the Rouse port and irrigated w with copious amounts of antibiotic containing solution. There is no evidence of bleeding or bile leak. All trochars were removed. Fascia was closed with interrupted 0 Nurolon at the umbilical incision and skin with 2-0 and 4-0 Vicryl she tolerated the procedure well and was transferred to recovery in stable condition
[2018-05-21] MEDS: *HR* FentaNYL (PF) 100 MCG/2 ML VIAL IVP PRN ×2 (16:11→16:22)
--- NOTE | 2018-05-21 16:38 | Anesthesia Evaluation Post Op ---
Date of Encounter: 05/21/18 Time of Encounter: 16:40 - Vital Signs Vital Signs: Vital Signs/O2 Sat/Glucose, Most Current Temp Pulse Resp BP Pulse Ox 05/21/18 16:30 97.5 F L 72 16 99/71 98 05/21/18 16:20 62 14 102/59 96 05/21/18 16:10 67 12 94/46 96 05/21/18 16:00 97.7 F 68 16 105/54 96 05/21/18 13:52 16 98 - Lungs Lungs: Clear Ascult./Percussion - Airway Airway: Non-obstructed - Cardiovascular Regular Rate - Mental Status Mental Status: Alert & Oriented, Answers Appropriately - Pain Pain Scale: 0 - Nausea Vomiting Nausea Vomiting: Not Present - Hydration Hydration: Ice chips - Discharge PostOp Status: Transfer Patient to floor
[2018-05-21] MEDS ORDERED: Ondansetron 4 MG/2 ML VIAL IVP PRN (17:01)
[2018-05-22] MEDS: *HR* OxyCODONE/APAP 10/325 TABLET PO PRN (00:17)
[2018-05-22] MEDS: cefOXitin 2,000 MG in Water for inj. (sterile) 20 ML 20 ML IVP SCH ×2 (00:25→12:15)
[2018-05-22] MEDS ORDERED: Nicotine 21 MG PATCH.TD24 TD SCH (09:00)
[2018-05-22 11:41] LABS: Basophils % 0.2 %; Hematocrit 35.1 % (35.3-44.9); Immature Granulocytes % 0.6 % (0-4); Immature Platelets 3.8 % (1.1-6.1); Lymphocytes # 1.3 K/mcL (0.6-4.6); Mean Corpuscular HGB Conc 34.2 g/dL (31.6-35.5); Mean Corpuscular Hemoglobin 33.6 pg (28.0-33.3); Mean Corpuscular Volume 98.3 fL (83.0-100.0); Mean Platelet Volume 10.4 fL (9.4-12.4); Monocytes # 0.7 K/mcL (0.0-1.3); Monocytes % 5.8 %; Neutrophils # 10.4 K/mcL (1.6-8.9); Platelet Count 314 K/mcL (140-400); Red Blood Count 3.57 M/mcL (3.82-4.97); Red Cell Distribution Width 12.5 % (11.5-14.5); Segmented Neutrophils % 83.4 %
[2018-05-22 11:49] LABS: Alanine Aminotransferase 243 Units/L (7-52); Albumin 3.7 g/dL (3.5-5.7); Albumin/Globulin Ratio 1.6 (1.1-2.2); Alkaline Phosphatase 114 Units/L (34-104); Aspartate Amino Transferase 169 Units/L (13-39); Bilirubin,Direct 0.1 mg/dL (0.0-0.2); Bilirubin,Indirect 0.4 mg/dL (0.0-1.2); Bilirubin,Total 0.5 mg/dL (0.3-1.0); Globulin 2.3 g/dL (2.4-3.5)
[2018-05-22 11:50] LABS: BUN/Creatinine Ratio 10 (6-26); Blood Urea Nitrogen 7 mg/dL (6-20); Calcium 8.8 mg/dL (8.6-10.3); Carbon Dioxide 18 mEq/L (23-29); Chloride 108 mEq/L (98-107); Glucose 199 mg/dL (70-105); Osmolality,Calculated 284 (280-300); Potassium 4.1 mEq/L (3.5-5.1); Sodium 135 mEq/L (136-145); eGFR For Non-African Americans > 60 (> 60)
--- NOTE | 2018-05-22 13:34 | Gastroenterology Consult Note ---
<Joyce Oswald - Last Filed: 05/22/18 13:32> Date of Encounter: 05/22/18 Time of Encounter: 13:32 - Assessment and plan (1) Common bile duct dilatation Status: Acute Assessment and plan: Common bile duct dilation may be secondary to recent stone passing through. Clinically she appears well and denies abdominal pain, fever, jaundice. -Afebrile, WBC 12.5 -AST 169, ALT 243 elevated -alkaline phosphatase 114 elevated -total bilirubin WNL -status post cholecystectomy on 05/21/2018 -XR cholangiogram 05/21/2018: dilated common bile duct without evidence of common bile duct stone. No contrast identified within the small bowel, a stricture of the distal CBD is not excluded. -Abdominal/pelvis CT 05/20/2018: irregular gallbladder wall thickening with probable noncalcified stones. Mild dilation of the common bile duct at 11 mm, findings concerning for cholecystitis. Plan: -the patient is currently abdominal pain free and stated that she would prefer to go home and follow-up outpatient in the [facility] office. Her LFTs and alkaline phosphatase are elevated, however clinically she is doing well and pain free. This may be secondary from a stone passing through the CBD. Will plan to follow-up with the patient next Saturday05/26/2018. The patient needs go to lab to have her LFTs checked prior to office visit. Discussed this with the patient and she is agreeable. (2) Acute cholecystitis Status: Acute Assessment and plan: status post cholecystectomy on 05/21/2018 - Time Spent With Patient Total time spent is greater than 50% in coordination of care (as documented) at patient's floor/unit and/or counseling patient: GI History of Present Illness - Data of Consult Patient: new to practice Consult date: 05/22/18 Requesting Physician: Dieudonne Felix MD - Consult Narrative Reason for consult: Dilated, bowel duct concern for choledocolithiasis History of present illness: Ms. Noriega is a 37 year old female with a past medical history who presented to [facility] complaining of abdominal pain for which was found to have cholecystitis. Gastroenterology was consulted due to imaging concerning for common bile duct dilation. She reported that she had one day of right upper quadrant sharp pain that lasts a little while then went away. At the time of her pain she was sitting at home anxious and upset about an eviction notice. The next afternoon the pain returned it was again very sharp without radiation in the right upper quadrant. She had nausea, vomiting, chills. She denied fever, chest pain, shortness of breath, hematemesis, melena, hematochezia, jaundice, pruritus. She has never had right upper quadrant pain before or after eating. She denies any other abdominal surgeries. She is a current smoker of half pack to full pack per day for 20 years. She denies current alcohol use. Denies drug use. Upon my examination of the patient she is status post cholecystectomy on 05/21/[address] imaging demonstrated acute cholecystitis. She stated that she no longer has abdominal pain. She denied fever, chills, pruritus, jaundice. She feels back to baseline and is requesting to go home today. She would rather follow up in the office. Past Med Surg Social Fam HX - Past Medical History Attestation: Yes The following information was validated with the patient. Source: patient Medical history: asthma, migraine, other Additional medical history: knee pain, restless legs Psychiatric history: no psych history - Past Surgical History Surgical History: no surgical history - Social History Smoking Status: Current every day smoker Packs per day: 1.5 Smokeless Tobacco Status: No Alcohol use: none Drug use: opiates - Family History Father Name: 58 Family Member Ethnicity: Non- Living Status: Still Living Hx Family Cardiac Disorders: Yes Hx Family Cancer: Yes (prostate cancer) Hx Family Endocrine Disorder: Yes Mother Living Status: Still Living Hx Family Endocrine Disorder: Yes Sister Age: 37 Living Status: Still Living Hx Family Cancer: Yes (breast) Hx Family Endocrine Disorder: Yes - Gastrointestinal Gastrointestinal: Present: abdominal pain, diarrhea, nausea, vomiting. Absent: change in bowel habits, constipation, hematemesis, hematochezia, melena - Constitutional Constitutional: no anorexia, no fever(s), no weight loss - EENT Nose, mouth and throat: Absent: dysphagia, hoarseness - Cardiovascular Cardiovascular ROS: Absent: chest pain, palpitations - Respiratory Respiratory IM: Absent: cough, dyspnea - Genitourinary Genitourinary: Absent: change in color, Urinary frequency - Neurological ROS Neurological GI: Absent: confusion, dizziness - Hematologic/Lymphatic Hematologic/Lymphatic pediatric: Absent: easy bleeding - Musculoskeletal Musculoskeletal ROS GI: Absent: back pain, joint swelling - Integumentary Integumentary GI: Absent: jaundice, pruritis, rash - Endocrine Endocrine IM: Absent: cold intolerance, fatigue - Constitutional Vitals: Temp Pulse Resp BP Pulse Ox 98.2 F 86 16 99/63 92 05/21/18 19:53 05/21/18 19:53 05/21/18 19:53 05/21/18 19:53 05/22/18 08:00 Exam: Gen.: Vitals noted. No acute distress. AAOx3 HEENT: oropharynx clear, Normocephalic, atraumatic, no jaundice or scleral icterus Neck: Supple. No adenopathy. Cardiac: RRR, no murmur, +S1/S2 Pulmonary: CTA bilaterally, no wheezes, rales or rhonchi, equal chest expansion Abdomen: soft, nontender, Bowel sounds noted, no guarding MSK: ROM intact, no joint swelling noted Extremities: no BLE edema, nontender calf, no cyanosis or clubbing Neuro: A&Ox3, moves all extremities, no focal deficits Psych: Appropriate mood and behavior Results - Labs CBC & Chem 7: 05/22/18 05:12 05/22/18 05:08 Labs: Last Result Calcium 8.8 mg/dL (8.6-10.3) 05/22/18 05:08 Entire Visit Hgb 12.0 g/dL (11.5-15.4) 05/22/18 05:12 Hct 35.1 % (35.3-44.9) L 05/22/18 05:12 Total Bilirubin 0.5 mg/dL (0.3-1.0) 05/22/18 05:08 AST 169 Units/L (13-39) H 05/22/18 05:08 ALT 243 Units/L (7-52) H 05/22/18 05:08 Lipase 16 Units/L (11-82) 05/20/18 19:06 - Impressions Impressions Cholangiogram,Operative 05/21/18 00:00 IMPRESSION: Cholecystectomy Dilated common bile duct without evidence of common bile duct stone No contrast identified within the small bowel. A stricture of the distal CBD is not excluded D/ / Edison New MD / Edison Nwe MD Interpreting Provider: Edison New MD Consult Discharge Plan - Plan Instructions: Sepsis (DC) Additional Instructions: General Surgical Discharge Instructions 1. No pushing, pulling, or lifting greater than 15 lbs for 2 weeks 2. You may shower beginning 05/05/18, but no tub baths, soaking, or swimming for 2 weeks. 3. You may resume driving when you are off narcotics and are safe to react in a car. 4. Take ibuprofen every 8 hours for discomfort. If this does not relieve discomfort, you may take the as needed Percocet. Take narcotics as directed. Do not take more narcotics then directed and do not share your narcotics with any other person. Do not drink alcohol while on narcotics. 5. Take stool softeners (Colace) or a water based laxative (Miralax) while taking narcotics. You may hold for loose stools. 6. Report any fevers greater than 100.5F, increase abdominal discomfort, drainage that looks like pus, increased redness or pain at the surgical site, or any vomiting. 7. Report any pain in the calves, shortness of breath, or rapid heartbeat. 8. Follow-up in the office as directed. Referrals: Dieudonne Felix MD [Partnered Physician] - 06/03/18 10:10 am (surgery follow-up) Irvin Reynoso MD [Partnered Physician] - (Provider requesting follow-up 05/26/18 in GI outpatient office) Prescriptions: Amoxicillin/Clavulanate [Augmentin] 875 mg PO BIDWM #10 tablet Docusate [Colace] 100 mg PO BID #30 capsule RX: Ibuprofen [Ibu] 800 mg PO Q8H #40 tablet <Irvin Reynoso - Last Filed: 05/23/18 19:46> Date of Encounter: 05/21/18 - Time Spent With Patient Total time spent is greater than 50% in coordination of care (as documented) at patient's floor/unit and/or counseling patient: GI History of Present Illness - Data of Consult Requesting Physician: Dieudonne Felix MD - Consult Narrative History of present illness: Ms. Noriega is a 37 year old female - Constitutional Vitals: Temp Pulse Resp BP Pulse Ox 98.0 F 81 14 119/72 100 05/22/18 14:11 05/22/18 14:11 05/22/18 14:11 05/22/18 14:11 05/22/18 14:11 Results - Labs CBC & Chem 7: 05/22/18 05:12 05/22/18 05:08 Labs: Last Result Calcium 8.8 mg/dL (8.6-10.3) 05/22/18 05:08 Entire Visit Hgb 12.0 g/dL (11.5-15.4) 05/22/18 05:12 Hct 35.1 % (35.3-44.9) L 05/22/18 05:12 Total Bilirubin 0.5 mg/dL (0.3-1.0) 05/22/18 05:08 AST 169 Units/L (13-39) H 05/22/18 05:08 ALT 243 Units/L (7-52) H 05/22/18 05:08 Lipase 16 Units/L (11-82) 05/20/18 19:06 - Attending Attestation I have personally performed a face to face evaluation on this patient. I have reviewed and agree with the care plan. History and Exam by me shows: Pt seen. Abd pain better. A: Pt post natalia and now with mildly elevated LFTS, r/o CBD stone vs recently passed stone. Rec: F/U GI with LFTS.
[2018-05-22 14:13] VITALS: BP 119/72
--- NOTE | 2018-05-22 14:22 | Discharge Summary ---
Orders not resulted at time of discharge: Pending orders 05/21/18 15:44 Surgical Pathology [PTH] Routine Date of Encounter: 05/22/18 Time of Encounter: 14:15 - Discharge Diagnosis (1) Acute cholecystitis Priority: Primary Status: Acute (2) Common bile duct dilatation Priority: Secondary Status: Acute (3) Tobacco abuse Priority: Secondary Status: Chronic General Surgery Exam Initial Vital Signs Temp Pulse Resp BP Pulse Ox 97.7 F 106 18 120/87 98 05/20/18 17:05 05/20/18 17:05 05/20/18 17:05 05/20/18 17:05 05/20/18 17:05 - General physical appearance well developed, well nourished, no distress - Eyes PERRL, normal ocular movement - ENT normal mucosa, atraumatic, normocephalic - Neck trachea midline - Respiratory normal respiratory effort, clear to auscultation - Cardiovascular Cardiovascular exam: Present: RRR - Abdomen Abdomen general surgery: Present: bowel sounds present, soft, tender (Expected postoperative tenderness) - Incision Incision: Present: clean and dry, intact - Integumentary Integumentary general surgery: Present: warm and dry - Neurologic Present: CN 2-12 grossly intact - Psychiatric Psychiatric general surgery: Present: appropriate, oriented to person, oriented to place, oriented to time, speech is normal, memory intact - Hospital Course Hospital course: Ms. Noriega is a 37 year old female who presented to the hospital with acute onset of abdominal pain. She was found to have acute cholecystitis. She was admitted to the hospital under Dr. Felix service. She was made nothing by mouth and placed on IV antibiotic therapy as well as IV fluids. She was taken to the operating room on 05/21/2018 for a laparoscopic cholecystectomy. The patient did have evidence of a distal common bile duct stricture. Gastroenterology was consulted for evaluation. She did have mild elevation of her LFTs as well. The patient has been seen and evaluated by gastroenterology and the recommendation is for her to follow-up as an outpatient in the upcoming days. She will have labs completed prior to her visit. She will follow-up in the surgery office in the next 10-14 days. On postoperative day #1, she is tolerating liquids without nausea or vomiting. Her vital signs are stable and she is afebrile. Her pain is well-controlled. She is voiding and ambulating without difficulty. - Time Spent with Patient Total time spent providing and/or coordinating discharge services: Less than 30 minutes - Discharge Medications Prescriptions: Amoxicillin/Clavulanate [Augmentin] 875 mg PO BIDWM #10 tablet Docusate [Colace] 100 mg PO BID #30 capsule RX: Ibuprofen [Ibu] 800 mg PO Q8H #40 tablet Home Medications: RX: Albuterol Sulfate [Albuterol Inhaler] 2 puff PO Q4H PRN 05/20/18 [History] RX: Gabapentin [Neurontin] 400 mg PO QID PRN 05/20/18 [History] RX: HYDROcodone/Acet 7.5/325 mg [[place] 7.5-325 mg] 1 tab PO TID 05/20/18 [History] RX: Medroxyprogesterone Acetate [Depo-Provera] 150 mg IM AD 05/20/18 [History] RX: Multivitamin [Multivitamins] 1 each PO DAILY 05/20/18 [History] RX: SUMAtriptan Succinate [Imitrex] 100 mg PO AD 05/20/18 [History] Amoxicillin/Clavulanate [Augmentin] 875 mg PO BIDWM #10 tablet 05/22/18 [Rx] Docusate [Colace] 100 mg PO BID #30 capsule 05/22/18 [Rx] RX: Ibuprofen [Ibu] 800 mg PO Q8H #40 tablet 05/22/18 [Rx] Allergies/Adverse Reactions: Allergy/AdvReac Type Severity Reaction Status Date / Time Sulfa (Sulfonamide Allergy Hives Verified 05/20/18 17:19 Antibiotics) Date of admission: 05/20/18 20:56 Primary care physician: PCP NONE Discharging clinician: Dieudonne Ventura) Anticipated date of discharge: 05/22/18 Labs on day of discharge: Labs from last 24 hours 05/22/18 05/22/18 05:12 05:08 WBC 12.5 H RBC 3.57 L Hgb 12.0 Hct 35.1 L MCV 98.3 MCH 33.6 H MCHC 34.2 RDW 12.5 Plt Count 314 MPV 10.4 Immature Gran % 0.6 Seg Neutrophils % 83.4 Lymphocytes % 10.0 Monocytes % 5.8 Eosinophils % 0.0 Basophils % 0.2 Neutrophils # 10.4 H Lymphocytes # 1.3 Monocytes # 0.7 Eosinophils # 0.0 Basophils # 0.0 Immature Plt Fraction 3.8 Sodium 135 L Potassium 4.1 Chloride 108 H Carbon Dioxide 18 L BUN 7 Creatinine 0.69 Est GFR ( Amer) > 60 Est GFR (Non-Af Amer) > 60 BUN/Creatinine Ratio 10 Glucose 199 H Calculated Osmolality 284 Calcium 8.8 Total Bilirubin 0.5 Direct Bilirubin 0.1 Indirect Bilirubin 0.4 AST 169 H ALT 243 H Alkaline Phosphatase 114 H Serum Total Protein 6.0 L Albumin 3.7 Globulin 2.3 L Albumin/Globulin Ratio 1.6 - Impressions ITS Impressions Chest X-Ray 05/20/18 17:10 IMPRESSION: Negative chest. D/ / Erin Person MD / Erin Person MD Interpreting Provider: Erin Person MD Abdomen/Pelvis CT 05/20/18 18:06 IMPRESSION: 1. Irregular gallbladder wall thickening with probable non calcified stones. Mild dilatation of the common bile duct at 11 mm. The findings are concerning for cholecystitis. Ultrasound follow-up recommended. 2. No other acute findings within the abdomen or pelvis. No evidence of obstructive uropathy or appendicitis. D/ / Jeevan Haley MD / Jeevan Haley MD Interpreting Provider: Jeevan Haley MD Cholangiogram,Operative 05/21/18 00:00 IMPRESSION: Cholecystectomy Dilated common bile duct without evidence of common bile duct stone No contrast identified within the small bowel. A stricture of the distal CBD is not excluded D/ / Edison New MD / Edison New MD Interpreting Provider: Edison New MD - Patient Status Disposition: Home, Self-Care Condition: Good Functional capacity at discharge: independent ambulation Overall status at discharge: patient is progressing back to baseline - Ambulatory Orders Ambulatory Orders: Hepatic Panel [CHEM] Time Frame: 05/26/18, Facility: [facility], Location: Lab - Discharge Instructions Instructions: Sepsis (DC) Follow Up With: Dieudonne Felix MD [Partnered Physician] - 06/03/18 10:10 am (surgery follow-up) Irvin Reynoso MD [Partnered Physician] - (Provider requesting follow-up 05/26/18 in GI outpatient office) Additional Instructions: General Surgical Discharge Instructions 1. No pushing, pulling, or lifting greater than 15 lbs for 2 weeks 2. You may shower beginning 05/05/18, but no tub baths, soaking, or swimming for 2 weeks. 3. You may resume driving when you are off narcotics and are safe to react in a car. 4. Take ibuprofen every 8 hours for discomfort. If this does not relieve discomfort, you may take the as needed Percocet. Take narcotics as directed. Do not take more narcotics then directed and do not share your narcotics with any other person. Do not drink alcohol while on narcotics. 5. Take stool softeners (Colace) or a water based laxative (Miralax) while taking narcotics. You may hold for loose stools. 6. Report any fevers greater than 100.5F, increase abdominal discomfort, drainage that looks like pus, increased redness or pain at the surgical site, or any vomiting. 7. Report any pain in the calves, shortness of breath, or rapid heartbeat. 8. Follow-up in the office as directed. - Diet and Activity Activity: other (See additional instructions above) Diet: low fat, low cholesterol - Attending Attestation For this encounter, I have reviewed the BLACK LEATHER BUFFER or PA documentation, treatment plan, and medical decision making; and I have had face to face time with this patient.
[2018-05-22] MEDS ORDERED: Nicotine 21 MG PATCH.TD24 TP ONE (15:20)
[2018-05-22] MEDS ORDERED: *HR* OxyCODONE/APAP 10/325 TABLET PO ONE (15:20)
--- NOTE | 2018-05-22 16:03 | Electrocardiograph Report ---
[place] [id number] Test Date: 2018-05-20 Pat Name: Virginia Noriega Department: [id number] Room: 3A37 Gender: F [employer] Agent: : 1980 Requested By: Nicholas Cueto Order Number: [id number] Reading MD: Vicky Armijo Measurements Intervals [place] Rate: 77 P: 59 NV: 163 QRS: 22 QRSD: 89 T: 58 QT: 360 QTc: 408 Interpretive Statements Sinus rhythm Low voltage, precordial leads RSR' in V1 or V2, right VCD or RVH Electronically Signed On 05-22-2018 16:02:10 EDT by Vicky Armijo
== END 2018-05-22 15:21 | disposition home or self-care (01) ==
LOC: 3ANU 17:03 → EMEROOARM 17:03 → 3ANU 21:17
PROVIDERS: ADMIT Surgery; ATTEND Surgery